=== PATIENT | female | born 1985 ===

== ENCOUNTER 2024-05-12 09:38 | Emergency (ER) | payer BC, MEDICAID ==
[2024-05-12] MEDS: Acetaminophen 500 MG Tab PO ONE (10:50)
[2024-05-12] MEDS: Ketorolac 30 MG/ML SDV IM ONE (10:50)
== END 2024-05-12 12:04 | disposition home or self-care (01) ==
LOC: DL.ED 09:38
DX: S49.91XA Unspecified injury of right shoulder and upper arm, initial encounter (principal); W19.XXXA Unspecified fall, initial encounter
CPT/HCPCS: 73030; 96372; 99283; A9270; J1885

== ENCOUNTER 2025-04-08 19:22 | Emergency (ER) | payer MEDICAID ==
[2025-04-08] MEDS ORDERED: Sodium Chloride 0.9% 10 ML Syringe FLUSH PRN (19:46)
[2025-04-08 19:55] LABS: BASOPHILS PERCENT AUTO 0.3 % (0.0-1.0); EOSINOPHILS PERCENT AUTO 0.8 % (1.0-3.0); LYMPHOCYTES PERCENT AUTO 28.5 % (20.5-50.1); MONOCYTES PERCENT AUTO 6.8 % (2-8); NEUTROPHILS PERCENT AUTO 63.6 % (42.2-75.2); PLATELET COUNT,PLT 253 10^3/uL (150-450); RED BLOOD CELL COUNT 5.05 10^6/uL (4.2-5.4); WHITE BLOOD CELL COUNT,WBC 10.3 10^3/uL (5.0-10.0)
[2025-04-08] MEDS: diphenhydrAMINE 50 MG/ML SDV IVPUSH ONE (20:12)
[2025-04-08] MEDS: Ketorolac 30 MG/ML SDV IVPUSH ONE (20:15)
[2025-04-08 20:17] LABS: ALANINE AMINOTRANSFERASE,ALT 24.0 U/L (14-59); ASPARTATE AMNIOTRANSFERASE,AST 11.0 U/L (15-37); BILIRUBIN TOTAL 0.5 mg/dL (0.2-1.0); BLOOD UREA NITROGEN,BUN 15.0 mg/dL (7-18); CARBON DIOXIDE,CO2 30.0 mmol/L (21-32); CHLORIDE,CL 101.0 mmol/L (98-107); CREATININE 0.89 mg/dL (0.55-1.02); EST CRCL DRUG DOSING (CG) 74.01 mL/min; GLUCOSE RANDOM 286.0 mg/dL (70-99); POTASSIUM,K 4.2 mmol/L (3.5-5.1); PROTEIN TOTAL,TP 6.2 g/dL (6.4-8.2); SODIUM,NA 138.0 mmol/L (136-145)
[2025-04-08 20:21] LABS: LACTIC ACID 0.7 mmol/L (0.4-2.0)
[2025-04-08 20:22] LABS: A/G RATIO 0.94; ESTIMATED GFR 85.0 mL/min (>=60)
[2025-04-08 21:32] LABS: AMPHETAMINES,URINE NEGATIVE (NEGATIVE); APPEARANCE,URINE CLEAR (CLEAR); BARBITURATES,URINE NEGATIVE (NEGATIVE); GLUCOSE,URINE 500 (NEGATIVE); MDMA (ECSTASY), URINE NEGATIVE (NEGATIVE); METHAMPHETAMINES,URINE NEGATIVE (NEGATIVE); OCCULT BLOOD,URINE TRACE-INTACT (NEGATIVE); OPIATES,URINE NEGATIVE (NEGATIVE); OXYCODONE,URINE NEGATIVE (NEGATIVE); PHENCYCLIDINE,URINE NEGATIVE (NEGATIVE); TCA,URINE NEGATIVE (NEGATIVE)
[2025-04-08 21:43] LABS: EPITHELIAL CELLS,URINE MANY /HPF (NOT SEEN)
== END 2025-04-08 21:50 | disposition home or self-care (01) ==
LOC: DL.ED 19:22
DX: R51.9 Headache, unspecified (principal); M54.50 Low back pain, unspecified; E10.65 Type 1 diabetes mellitus with hyperglycemia; Z88.8 Allergy status to other drugs, medicaments and biological substances
CPT/HCPCS: 36415; 80053; 80305; 81001; 83605; 85025; 96361; 96374; 96375; 99283; 99284; J1200; J1885; J2765; J7030